=== PATIENT | female | born 1940 | race Caucasian/White ===

== ENCOUNTER → 2020-02-25 12:30 | Outpatient (CLI) | payer MEDICARE, BC | END | disposition home or self-care (01) | LOC: D.RAD 12:30 | PROVIDERS: ATTEND Internal Medicine Gastroenterology | DX: Z98.890 Other specified postprocedural states (principal) ==

== ENCOUNTER 2020-03-30 06:00 | Day surgery (SDC) | payer MEDICARE, BC ==
[2020-03-29 12:33] LABS: BASOPHILS 0.3 % (0-2); EOSINOPHILS 0.4 % (0-7); HEMATOCRIT 38.8 % (36.0-48.0); HEMOGLOBIN 12.4 g/dL (12-16); IMMATURE GRANULOCYTES 0.1 % (0-5); LYMPHOCYTES 23.2 % (15-50); MCH 28.1 pg (26.0-34.0); MCV 87.8 fL (80.0-100.0); MONOCYTES 6.2 % (2-11); NEUTROPHILS 69.8 % (40-80); PLATELET COUNT 289 10x3/uL (130-400); RBC 4.42 10x6/uL (4.00-5.40); WBC 6.9 10x3/uL (4.8-10.8)
[2020-03-29 12:35] LABS: INR 1.74 (0.85-1.17); PROTIME 20.1 SECONDS (11.6-15.0)
[2020-03-29 12:36] LABS: APTT 70.2 SECONDS (22.8-39.4)
[2020-03-29 12:38] LABS: ANION GAP 9.1 mmol/L (8-16); CALCIUM 8.8 mg/dL (8.5-10.1); CARBON DIOXIDE 26.5 mmol/L (21.0-32.0); CREATININE - SERUM 0.9 mg/dL (0.6-1.3); POTASSIUM - SERUM 3.6 mmol/L (3.5-5.1)
[~2020-03-30] VITALS: Ht 162.6 cm; Wt 76.2 kg
[~2020-03-30 06:00] MED LIST: BAYER CHEWABLE81 MG; CITRACAL + D E1 EACH; FERROUS SULFAT325 MG PO; MIRALAX17 GM; MULTI-DAY VITAM1 TAB; NORVASC5 MG; OMEPRAZOLE40 MG; PEPCID AC20 MG PO; PRAVACHOL20 MG PO; PROPRANOLOL HCL20 MG; SYNTHROID100 MCG PO; [UNRECOGNIZED DRUG - OTHER]
[2020-03-30 06:41] VITALS: BP 127/80; Ht 162.6 cm; Wt 76.2 kg
--- NOTE | 2020-03-30 08:30 | NUR ---
Patient was scheduled for a right breast lymphoscintigraphy. Consent was obtained. Patient arrived to the nuclear medicine department and was positioned supine on the imaging table. Dr. Ho entered the room and a time out was called at 0810. Site was prepped and 495uCi Tc-99m Tilmanocept was injected subcutaneously in the right breast. Imaging followed.
--- NOTE | 2020-03-30 10:31 | NUR ---
1009 BACK TO 7397 VIA STRETCHER FROM RADIOLOGY. Mick KHALIL R.N.
[2020-03-30] MEDS ORDERED: HYDROCODON-ACE1 EA10 PO (12:34)
--- NOTE | 2020-03-30 12:54 | NUR ---
SCOPE PATCH BEHIND RT EAR ON ADMIT
--- NOTE | 2020-03-30 14:42 | NUR ---
1357 1 NORCO 10/325MG PO FOR PAIN. RANKS PAIN 11/13. Mick KHALIL R.N.
--- NOTE | 2020-03-30 14:45 | NUR ---
PATIENT AMBULATES TO BATHROOM AND VOIDS IN TOILET WITHOUT DIFFICULTY. AMBULATES WITHOUT DIZZINESS OR UNSTEADINESS. LEFT WRIST PIV DC'D WITH TIP INTACT. PATIENT DRESSING IN PERSONAL CLOTHING
--- NOTE | 2020-03-30 15:05 | NUR ---
DISCHARGE INSTRUCTIONS REVIEWED WITH PATIENT AND DAUGHTER. PATIENT DISCHARGED HOME VIA WHEELCHAIR TO PRIVATE VEHICLE WITH DAUGHTER
--- NOTE | 2020-04-01 13:22 | OP ---
PATIENT NAME: LIZET COOLEY MEDICAL RECORD: [id number] :42 LOCATION:[facility] ADMISSION DATE: SURGEON: ANTHONY HAMMER MD DATE OF OPERATION: 03/30/2020 PREOPERATIVE DIAGNOSES: 1. Right breast cancer. 2. Paraesophageal hernia with gastroesophageal reflux disease. 3. Hypercholesterolemia. 4. Hypertension. 5. Iron deficiency anemia. POSTOPERATIVE DIAGNOSES: 1. Right breast cancer. 2. Paraesophageal hernia with gastroesophageal reflux disease. 3. Hypercholesterolemia. 4. Hypertension. 5. Iron deficiency anemia. PROCEDURE: Right lumpectomy with sentinel lymph node biopsy. SURGEON: Anthony Hammer MD REPORT OF PROCEDURE: Preoperatively, the patient underwent lymphoscintigraphy which showed uptake in the patient's right axilla. The patient's right breast and axilla were prepped and draped in sterile fashion. An ovoid incision was made overlying the palpable mass in the right lateral breast and using electrocautery, we came around the 2.5 cm mass including a section of abnormal appearing fatty breast tissue. Once we had this completely excised, it was marked appropriately and sent off for permanent specimen. We irrigated out the wound bed with sterile water and treated any bleeding with electrocautery. At this point, we approached the patient's right axilla. A Neoprobe was used to find any radiotracer uptake and we were able to find a lymph node in the anterior aspect of the superior axilla. A skin incision was made transversely overlying this and we dissected down through the axillary fascia. We were able to elevate this tissue and found a sentinel lymph node with a reading of 600. It was removed with the usage of clips. Once this was excised, we inspected the remainder of the pocket and did not find any evidence of any further lymphadenopathy that will require removal. We irrigated out this wound bed with sterile water. The subcutaneous tissues of both wounds were reapproximated with interrupted 3-0 Vicryl and the skin incisions were closed with running subcutaneous 5-0 Monocryl. COMPLICATIONS: None. CONDITION: Stable. ANESTHESIA: General endotracheal and local. BLOOD LOSS: Minimal. TRANSINT:[id number] Voice Confirmation ID: [id number] DOCUMENT ID: [id number] OPERATIVE REPORT [id number] LENORALIZET ANTHONY HAMMER MD at 1322 CC: SASHA ENGEL MD [id number] DICTATION DATE: 03/30/20 1238 TRIMMER OPERATOR: 03/30/20 2229 [facility] 03/30/20 [id number] [place] [address]
== END 2020-03-30 15:07 | disposition home or self-care (01) ==
LOC: D.OPS 06:00 → D.PAN 08:00 → D.NM 08:00 → D.OPS 15:07
PROVIDERS: Anesthesiology; ATTEND Surgery
DX: C50.911 Malignant neoplasm of unspecified site of right female breast (principal); K44.9 Diaphragmatic hernia without obstruction or gangrene; K21.9 Gastro-esophageal reflux disease without esophagitis; E78.00 Pure hypercholesterolemia, unspecified; I10 Essential (primary) hypertension; D50.9 Iron deficiency anemia, unspecified

== ENCOUNTER 2020-04-02 10:06 | Emergency (ER) | payer MEDICARE, BC ==
[~2020-04-02] VITALS: Ht 162.6 cm; Wt 75.0 kg
[~2020-04-02 10:06] MED LIST changes: +HYDROCODON-ACE1 EA10 PO
[2020-04-02 10:11] VITALS: Ht 162.6 cm; Wt 75.0 kg
[2020-04-02 10:49] LABS: BASOPHILS 0.2 % (0-2); EOSINOPHILS 0.3 % (0-7); HEMATOCRIT 40.6 % (36.0-48.0); HEMOGLOBIN 13.2 g/dL (12-16); IMMATURE GRANULOCYTES 0.1 % (0-5); LYMPHOCYTES 16.1 % (15-50); MCH 28.1 pg (26.0-34.0); MCHC 32.5 g/dL (31.0-37.0); MCV 86.4 fL (80.0-100.0); MEAN PLATELET VOLUME 9.1 fL (7.4-10.4); MONOCYTES 6.7 % (2-11); NEUTROPHILS 76.6 % (40-80); PLATELET COUNT 268 10x3/uL (130-400); WBC 8.9 10x3/uL (4.8-10.8)
[2020-04-02 10:58] LABS: ANION GAP 15.8 mmol/L (8-16); CALCIUM 8.9 mg/dL (8.5-10.1); CARBON DIOXIDE 25.5 mmol/L (21.0-32.0); CREATININE - SERUM 0.8 mg/dL (0.6-1.3); POTASSIUM - SERUM 3.3 mmol/L (3.5-5.1)
[2020-04-02 11:04] LABS: ALBUMIN 4.1 g/dL (3.4-5.0); BILIRUBIN - TOTAL 0.5 mg/dL (0.2-1.3)
[2020-04-02] MEDS ORDERED: ZOFRAN ODT4 MG/UDTAB PO (12:28)
[2020-04-02 12:59] VITALS: BP 152/85
== END 2020-04-02 13:00 | disposition home or self-care (01) ==
LOC: D.ER 10:06
PROVIDERS: Emergency Medicine
DX: R06.00 Dyspnea, unspecified (principal); I12.9 Hypertensive chronic kidney disease with stage 1 through stage 4 chronic kidney disease, or unspecified chronic kidney disease; N18.9 Chronic kidney disease, unspecified; R73.9 Hyperglycemia, unspecified; E87.6 Hypokalemia; R11.2 Nausea with vomiting, unspecified; K44.0 Diaphragmatic hernia with obstruction, without gangrene

== ENCOUNTER 2020-04-22 05:31 | Day surgery (SDC) | payer MEDICARE, BC ==
[~2020-04-22] VITALS: Ht 162.6 cm; Wt 71.8 kg
--- NOTE | ~2020-04-22 | OP ---
PATIENT NAME: LIZET COOLEY MEDICAL RECORD: [id number] :42 LOCATION:[facility] ADMISSION DATE: SURGEON: ANTHONY HAMMER MD DATE OF OPERATION: 04/22/2020 PREOPERATIVE DIAGNOSES: 1. Paraesophageal hernia. 2. Gastroesophageal reflux disease. 3. History of paraesophageal hernia repair with Bertha fundoplication. 4. Hypertension. 5. Hypercholesterolemia. POSTOPERATIVE DIAGNOSES: 1. Paraesophageal hernia. 2. Gastroesophageal reflux disease. 3. History of paraesophageal hernia repair with Bertha fundoplication. 4. Hypertension. 5. Hypercholesterolemia. PROCEDURES: 1. EGD with biopsy. 2. Manometry catheter placement. SURGEON: Anthony Hammer MD REPORT OF PROCEDURE: The Olympus endoscope was advanced through the mouth and esophagus. As we were entering the inferior aspect of the esophagus, there was noted to be ascitic fluid present. There were some food particles present. We tried to suction all of this out as much as possible. We were eventually able to find the opening of the GE junction and penetrated through this very tortuous paraesophageal hernia until we entered the body of the stomach. WE were able to pass through the stomach and we found the pylorus. I was able to pass the pylorus and get into the third portion of the duodenum. There were some mild inflammatory changes, but no masses, lesions or ulcerations were visualized as we pulled back, we can see the pylorus of the stomach and this appeared to be normal. I did not see any evidence of any ulcerations or masses. A random biopsy was taken of the tissues of the pylorus/antrum. The retroflexed view showed the patient did have a Bertha wrap that was present, but this was all tucked up into a tight hiatal/paraesophageal hernia, making it difficult for a full assessment. As I pulled the scope back, there was such inflammation to the tissues of the distal esophagus and everything appeared to be swollen, but there are no signs of any necrotic tissue. Everything just appeared to be white. I was able to pull the scope back and I just had a lot of trouble finding where the Z line was. Reaccessing the stomach was quite difficult as the paraesophageal hernia was quite tortuous. We eventually tried to place the manometry catheter and was able to get it down to release the distal esophagus. Had a lot of difficulty seeing if we were able to actually pass it through into the stomach or not. Eventually, we had feared that if we continued with manipulation, we may tear something, so we decided to just discontinue and leave the catheter in place where it was at. At this point, the insufflation was removed as much as possible and the endoscope was taken out. COMPLICATIONS: None. CONDITION: Stable. OPERATIVE REPORT [id number] LIZET COOLEY ANESTHESIA: TIVA. BLOOD LOSS: None. TRANSINT:[id number] Voice Confirmation ID: [id number] DOCUMENT ID: [id number] ANTHONY HAMMER MD CC: NANDO SPENCER MD and SASHA ENGEL MD [id number] DICTATION DATE: 04/22/20 0858 PROTECTIVE SIGNAL OPERATOR: 04/22/20 1009 [facility] [address] [place] [address]
[~2020-04-22 05:31] MED LIST changes: +ZOFRAN ODT4 MG/UDTAB PO
[2020-04-22 06:04] LABS: BASOPHILS 0.2 % (0-2); EOSINOPHILS 3.4 % (0-7); HEMATOCRIT 36.3 % (36.0-48.0); HEMOGLOBIN 11.4 g/dL (12-16); IMMATURE GRANULOCYTES 0.2 % (0-5); LYMPHOCYTES 33.9 % (15-50); MCH 27.7 pg (26.0-34.0); MCHC 31.4 g/dL (31.0-37.0); MCV 88.3 fL (80.0-100.0); MEAN PLATELET VOLUME 8.6 fL (7.4-10.4); MONOCYTES 10.3 % (2-11); PLATELET COUNT 215 10x3/uL (130-400); RBC 4.11 10x6/uL (4.00-5.40); RDW 13.7 % (11.5-14.5)
[2020-04-22 06:22] LABS: ANION GAP 11.2 mmol/L (8-16); CALCIUM 8.7 mg/dL (8.5-10.1); CARBON DIOXIDE 27.8 mmol/L (21.0-32.0); CREATININE - SERUM 0.8 mg/dL (0.6-1.3)
[2020-04-22] MEDS ORDERED: PROBIOTIC1 EAC1 PO (06:39)
[2020-04-22] MEDS ORDERED: ARIMIDEX (06:41)
[2020-04-22] MEDS ORDERED: [UNRECOGNIZED DRUG - OTHER] (06:41)
[2020-04-22 06:55] VITALS: Ht 162.6 cm; Wt 71.8 kg
--- NOTE | 2020-04-22 09:29 | NUR ---
0900 TO 0920 ESOPHAGEAL MANOMETRY AT THIS TIME.
--- NOTE | 2020-04-22 10:22 | NUR ---
1020 IV REMOVED AND PRESSURE HELD INSTRUCTIONS GIVEN.
== END 2020-04-22 10:23 | disposition home or self-care (01) ==
LOC: D.OPS 05:31
PROVIDERS: Anesthesiology; ATTEND Surgery
DX: K44.9 Diaphragmatic hernia without obstruction or gangrene (principal); K21.9 Gastro-esophageal reflux disease without esophagitis; I10 Essential (primary) hypertension; E78.00 Pure hypercholesterolemia, unspecified; E87.6 Hypokalemia; N18.9 Chronic kidney disease, unspecified; R13.10 Dysphagia, unspecified; R73.9 Hyperglycemia, unspecified; D50.9 Iron deficiency anemia, unspecified; C50.919 Malignant neoplasm of unspecified site of unspecified female breast

== ENCOUNTER 2020-05-04 06:46 | Day surgery (SDC) | payer MEDICARE, BC ==
[~2020-05-04] VITALS: Ht 162.6 cm; Wt 69.5 kg
--- NOTE | ~2020-05-04 | OP ---
PATIENT NAME: LIZET COOLEY MEDICAL RECORD: [id number] :42 LOCATION:[facility] ADMISSION DATE: SURGEON: ANTHONY HAMMER MD DATE OF OPERATION: 05/04/2020 PREOPERATIVE DIAGNOSES: 1. Recurrent paraesophageal hernia. 2. GERD. 3. Dysphagia secondary to paraesophageal hernia. 4. Hypertension. 5. Hypercholesterolemia. 6. Arthritis. 7. Iron deficiency anemia. 8. Right breast cancer, status post lumpectomy. POSTOPERATIVE DIAGNOSES: 1. Recurrent paraesophageal hernia. 2. GERD. 3. Dysphagia secondary to paraesophageal hernia. 4. Hypertension. 5. Hypercholesterolemia. 6. Arthritis. 7. Iron deficiency anemia. 8. Right breast cancer, status post lumpectomy. PROCEDURE: Laparoscopic redo paraesophageal hernia repair with Bertha fundoplication. SURGEON: Anthony Hammer MD REPORT OF PROCEDURE: The patient's abdomen was prepped and draped in sterile fashion. A Veress needle was inserted in the left upper quadrant and the abdomen was insufflated. An 11 mm Visiport trocar was inserted in the midline just above the umbilicus. I could see the Veress needle and there was no sign of any injury to bowel or surrounding structures. An 11 mm trocar was then placed under direct visualization in the left subcostal region, a 5 mm trocar was placed in the epigastric region, a 5 mm trocar was placed in the left lateral abdomen, and a final 5 mm trocar was placed in the right lateral subcostal region. A liver retractor was inserted and we elevated the left lobe of the liver. At this point, we could see the stomach and there was a hiatal hernia that appeared to be quite tight. As I pulled down on the stomach, there was a little bit of relaxation of the hernia, but there was still a lot of attachments present. Using tedious dissection, we were able to take down these lateral attachments of the stomach to the esophageal hiatus and the hernia sac. As we eventually dissected these free, the stomach became more loose and we eventually were able to completely eviscerate the dome of the stomach out of the chest cavity. The patient had a tight band of tissue present on the posterior aspect of the stomach where it had been up in the chest. This was taken down with electrocautery. This freed up this fundus of the stomach quite nicely. We continued our dissection, taking down any attachments up the esophagus off the surrounding tissues and eventually was able to get up into the thoracic cavity and dissected the esophagus free until we had about 3 cm of esophagus distally in the abdominal cavity with no tension. The esophagus had a lot of fatty tissue present on it and some scar tissue from the previous dissections. This was taken down carefully with sharp dissection and eventually, we were able to OPERATIVE REPORT [id number] LIZET COOLEY clearly visualize the anterior aspect of the esophagus at the GE junction quite nicely. The patient did have a Bertha fundoplication, but this appeared to have been pushed down on the stomach. It was very loose and I did not feel that it was adequate for the patient's reflux. The wrap was actually pushed down over the stomach at this point and was no longer on the distal esophagus. I went ahead and took down the wrap using Harmonic scalpel and unwrapped the fundus of the stomach. Once we had this done, then we had clear visualization of the anatomy of the stomach and esophagus. I can see that they rested very easily in the abdominal cavity without any tension. The esophageal hiatus was partially closed, but loose. I went ahead and placed another suture on the posterior aspect near the esophagus using interrupted 0 Polydek. This reapproximated the esophageal hiatus much better around the distal esophagus. We then performed a 360-degree posterior wrap of the fundus of the stomach around the distal esophagus. This was done using interrupted 0 Polydeks times 3 with the top and the bottom suture incorporating a bite of the esophagus. I tried to make sure that this wrap was done loosely because the patient did show signs of some esophageal dysmotility on her preoperative manometry. I think most of this dysmotility was secondary to the near obstruction caused by the paraesophageal hernia though. At this point, all the tissues rested in good position with no tension. I saw no evidence of any active bleeding. We irrigated out the abdomen thoroughly with normal saline and the liver retractor was removed. The 11 mm trocar site fascias were closed with interrupted 0 Vicryls using a JoelViet suture passer device. The ports and insufflation were then removed and the incisions were infused with a total of 20 mL of 0.25% Marcaine with epinephrine. The skin incisions were all closed with subcutaneous 5-0 Monocryl and dressed appropriately. COMPLICATIONS: None. CONDITION: Stable. ANESTHESIA: General endotracheal and local. BLOOD LOSS: 30 mL. NTS:[id number] Voice Confirmation ID: [id number] DOCUMENT ID: [id number] ANTHONY HAMMER MD CC: SASHA ENGEL MD [id number] DICTATION DATE: 05/04/201216 FLIGHT STEWARD: 05/04/20 210 [facility] [address] [id number]
[~2020-05-04 06:46] MED LIST changes: +ANASTROZOLE PO; +ARIMIDEX; +PROBIOTIC1 EAC1 PO; +[UNRECOGNIZED DRUG - OTHER]
[2020-05-04 07:22] LABS: BASOPHILS 0.3 % (0-2); EOSINOPHILS 1.7 % (0-7); HEMATOCRIT 36.5 % (36.0-48.0); HEMOGLOBIN 11.7 g/dL (12-16); IMMATURE GRANULOCYTES 0.2 % (0-5); LYMPHOCYTES 24.9 % (15-50); MCH 27.9 pg (26.0-34.0); MCHC 32.1 g/dL (31.0-37.0); MCV 86.9 fL (80.0-100.0); MEAN PLATELET VOLUME 8.9 fL (7.4-10.4); MONOCYTES 10.5 % (2-11); NEUTROPHILS 62.4 % (40-80); RDW 13.7 % (11.5-14.5); WBC 6.3 10x3/uL (4.8-10.8)
[2020-05-04 07:30] LABS: PLATELET COUNT 261 10x3/uL (130-400)
[2020-05-04 07:39] LABS: ANION GAP 10.1 mmol/L (8-16); CARBON DIOXIDE 29.3 mmol/L (21.0-32.0); POTASSIUM - SERUM 3.4 mmol/L (3.5-5.1)
[2020-05-04 07:43] LABS: APTT 28.7 SECONDS (22.8-39.4); INR 1.01 (0.85-1.17); PROTIME 13.3 SECONDS (11.6-15.0)
[2020-05-04 08:53] VITALS: BP 120/60; BMI 27.0
--- NOTE | 2020-05-04 16:03 | NUR ---
PATIENT TRANSFERRED BY STRETCHER TO ROOM 2204, PATIENT AWAKE, ALERT, NO COMPLAINTS, ACCOMPANIED BY DAUGHTER
[2020-05-04 16:28] VITALS: BP 127/62; Ht 162.6 cm; Wt 69.5 kg
[2020-05-04 16:51] VITALS: BP 124/67
[2020-05-04 17:00] VITALS: BP 118/63
[2020-05-04 17:15] VITALS: BP 115/60
--- NOTE | 2020-05-04 18:43 | NUR ---
1615 ARRIVED FROM OR VIA STRETCHER POST OP PROCEEDURE BY DR HAMMER FREQUENT VS INITIATED
[2020-05-05 04:00] VITALS: BP 129/52
[2020-05-05 06:27] LABS: BASOPHILS 0 % (0-2); EOSINOPHILS 0 % (0-7); HEMATOCRIT 34.2 % (36.0-48.0); HEMOGLOBIN 10.8 g/dL (12-16); IMMATURE GRANULOCYTES 0.1 % (0-5); LYMPHOCYTES 14.5 % (15-50); MCH 27.3 pg (26.0-34.0); MCHC 31.6 g/dL (31.0-37.0); MCV 86.6 fL (80.0-100.0); MEAN PLATELET VOLUME 9.3 fL (7.4-10.4); MONOCYTES 9.7 % (2-11); NEUTROPHILS 75.7 % (40-80); PLATELET COUNT 282 10x3/uL (130-400); RBC 3.95 10x6/uL (4.00-5.40); RDW 13.4 % (11.5-14.5)
[2020-05-05 06:44] LABS: WBC 8.4 10x3/uL (4.8-10.8)
[2020-05-05 06:50] LABS: CALC OSMOLALITY 271 mosm/kg (275-300); CALCIUM 8.2 mg/dL (8.5-10.1); CARBON DIOXIDE 26.4 mmol/L (21.0-32.0); CHLORIDE - SERUM 103 mmol/L (98-107); GLUCOSE 100 mg/dL (74-106); POTASSIUM - SERUM 3.6 mmol/L (3.5-5.1); SODIUM 136 mmol/L (136-145); UREA NITROGEN 13 mg/dL (7-18); eGFR NON AFRICAN AMERICAN 86 mL/min (90-120)
[2020-05-05 06:58] LABS: CREATININE - SERUM 0.7 mg/dL (0.6-1.3)
[2020-05-05 12:38] VITALS: BP 128/68
[2020-05-05 17:46] VITALS: BP 125/65
[2020-05-05] MEDS ORDERED: REGLAN10 MG PO (18:24)
[2020-05-05] MEDS ORDERED: HYDROCODON-ACE1 EAC7 PO (18:25)
--- NOTE | 2020-05-05 19:20 | NUR ---
PATIENT RECIEVED DC INSTRUCTIONS. VERBALIZED UNDERSTANDING. IV REMOVED WITH CATH TIP INTACT. NO QUESTIONS AT THIS TIME. GAVE PATIENT PRESCRIPTION FOR NORCO. ESCORTED PATIENT DOWN TO PRIVATE VEHICLE WITH PERSONAL BELONGINGS VIA WC.
== END 2020-05-05 19:50 | disposition home or self-care (01) ==
LOC: D.MS 06:46 → D.OPS 06:46 → D.MS 16:04 → D.OPS 05-05 19:50
PROVIDERS: Anesthesiology; ATTEND Surgery
DX: K44.9 Diaphragmatic hernia without obstruction or gangrene (principal); K21.9 Gastro-esophageal reflux disease without esophagitis; I10 Essential (primary) hypertension; E78.00 Pure hypercholesterolemia, unspecified; D50.9 Iron deficiency anemia, unspecified; Z85.3 Personal history of malignant neoplasm of breast; E87.6 Hypokalemia; N18.9 Chronic kidney disease, unspecified; R13.10 Dysphagia, unspecified; R73.9 Hyperglycemia, unspecified; C50.919 Malignant neoplasm of unspecified site of unspecified female breast